=== PATIENT | female | born 1970 | race Caucasian/White ===

== ENCOUNTER 2018-05-21 10:45 | Emergency (ER) | payer OTHER ==
[~2018-05-21] VITALS: Ht 157.5 cm; Wt 74.8 kg
[2018-05-21 10:54] VITALS: Ht 157.5 cm; Wt 74.8 kg
[2018-05-21 13:37] VITALS: BP 117/69
== END 2018-05-21 13:37 | disposition home or self-care (01) ==
LOC: ED 10:45
DX: T63.441A Toxic effect of venom of bees, accidental (unintentional), initial encounter (principal); Y92.89 Other specified places as the place of occurrence of the external cause
CPT/HCPCS: J7512; Q0163